=== PATIENT | female | born 1990 | race Caucasian/White ===

== ENCOUNTER 2016-10-16 18:49 | Outpatient (CLI) | payer OTHER ==
[~2016-10-16] VITALS: Ht 160 cm; Wt 60.4 kg
[2016-10-16 19:38] VITALS: BP 117/72
[2016-10-16 21:00] VITALS: BP 100/64
[2016-10-16 21:21] LABS: ADD MIUA? YES; BILIRUBIN NEGATIVE; BLOOD NEGATIVE; COLOR AMBER ((YELLOW)); GLUCOSE (STRIP) NEGATIVE; KETONES 80; LEUKOCYTES NEGATIVE; NITRITE NEGATIVE; PROTEIN (STRIP) 100; SPECIFIC GRAVITY 1.025 (1.000-1.030); UROBILINOGEN 0.2 MG/DL (0.2-1.0)
[2016-10-16 21:47] LABS: BACTERIA NONE SEEN /HPF; EPITHELIAL CELLS 1+ /HPF; MUCUS 4+ /LPF; RED BLOOD CELLS 0-5 /HPF (0-5); UCUL ADDED? NO; WHITE BLOOD CELLS 0-5 /HPF (0-5)
[2016-10-16 21:48] LABS: COLOR AMBER ((YELLOW)); LEUKOCYTES NEGATIVE; NITRITE NEGATIVE; PROTEIN (STRIP) 100; SPECIFIC GRAVITY 1.025 (1.000-1.030)
[2016-10-16 21:49] LABS: ADD MIUA? YES; BILIRUBIN NEGATIVE; BLOOD NEGATIVE; GLUCOSE (STRIP) NEGATIVE; KETONES 80; UROBILINOGEN 0.2 MG/DL (0.2-1.0)
[2016-10-16 21:52] LABS: BACTERIA NONE SEEN /HPF; EPITHELIAL CELLS 1+ /HPF; MUCUS 4+ /LPF; RED BLOOD CELLS 0-5 /HPF (0-5); WHITE BLOOD CELLS 0-5 /HPF (0-5)
[2016-10-16 21:55] LABS: EOSINOPHIL (%) 0 % (0-5); HEMATOCRIT 35.2 % (36.0-46.0); IMMATURE GRANULOCYTE (%) 0.7 % (0.0-0.7); IMMATURE GRANULOCYTE COUNT 0.1 K/uL; INSTRUMENT ABS NEUTROPHIL CT 8.6 K/uL; MCHC 30.1 G/DL (30.0-36.0); MEAN PLAT.VOLUME 10.2 uM^3 (9.5-12.4); MONOCYTE (%) 4.5 % (3-12); MONOCYTE COUNT 0.5 K/uL (0-0.8); NEUTROPHIL COUNT 8.6 K/uL (1.8-6.4); NRBC (%) 0.2 /100 WBC (0-0); PLATELET COUNT 394 K/uL (156-360); RBC DIS.WIDTH-CV 16.4 % (11.8-14.6); RED BLOOD COUNT 4.82 M/uL (3.80-5.20); WHITE BLOOD COUNT 11.1 K/uL (4.1-10.2)
[2016-10-16 22:04] LABS: CHLORIDE 106 mEq/L (99-109); POTASSIUM 3.3 mEq/L (3.7-5.4); SODIUM 142 mEq/L (136-147)
[2016-10-16 22:05] LABS: ADD MEDTOX COMMENT Y; AMPHETAMINE NEGATIVE (500 ng/mL); BARBITURATES NEGATIVE (200 ng/mL); BENZODIAZEPINES NEGATIVE (150 ng/mL); COCAINE PRESUMPTIVE POSITIVE (150 ng/mL); INTERNAL CONTROLS VALID? YES; METHADONE NEGATIVE (200 ng/mL); METHAMPHETAMINE NEGATIVE (500 ng/mL); OPIATES (MORPHINE) PRESUMPTIVE POSITIVE (100 ng/mL); OXYCODONE NEGATIVE (100 ng/mL); PHENCYCLIDINE NEGATIVE (25 ng/mL); PROPOXYPHENE NEGATIVE (300 ng/mL); THC CANNABINOIDS NEGATIVE (50 ng/mL); TRICYCLIC ANTIDEPRESSANTS NEGATIVE (300 ng/mL)
[2016-10-16 22:06] LABS: GLUCOSE 76 mg/dL (70-99)
[2016-10-16 22:07] LABS: ANION GAP 11 MEQ/L (2-14)
[2016-10-16 22:08] LABS: TOTAL BILIRUBIN 0.7 mg/dL (0.0-1.0)
[2016-10-16 22:09] LABS: ALKALINE PHOSPHATASE 112 IU/L (3-129)
[2016-10-16 22:10] LABS: GFR ESTIMATE (CALCULATED) > 59 mL/min/
[2016-10-16 22:11] LABS: UREA NITROGEN (BUN) 8 mg/dL (9-23)
[2016-10-16] MEDS ORDERED: SUBOXONE 8 MG-1 EAC2 SL (22:42)
[2016-10-16 23:54] VITALS: BP 123/66
[2016-10-17 00:25] LABS: METH RESISTANT S AUREUS PCR POSITIVE (NEGATIVE)
[2016-10-17 00:35] LABS: PROBE CHECK PASS
[2016-10-17 02:45] VITALS: BP 127/60
[2016-10-17 03:46] VITALS: BP 124/76
[2016-10-17 06:33] VITALS: BP 97/54
[2016-10-17 07:49] LABS: EOSINOPHIL (%) 0.4 % (0-5); HEMATOCRIT 26.9 % (36.0-46.0); IMMATURE GRANULOCYTE (%) 0.9 % (0.0-0.7); IMMATURE GRANULOCYTE COUNT 0.1 K/uL; INSTRUMENT ABS NEUTROPHIL CT 6.7 K/uL; LYMPHOCYTE COUNT 3.5 K/uL (1.0-2.8); MCH 22.5 PG (29.0-34.0); MCHC 30.5 G/DL (30.0-36.0); MCV 73.7 FL (83-99); MEAN PLAT.VOLUME 10.5 uM^3 (9.5-12.4); MONOCYTE (%) 6.3 % (3-12); MONOCYTE COUNT 0.7 K/uL (0-0.8); NEUTROPHIL (%) 60.2 % (45-76); NEUTROPHIL COUNT 6.7 K/uL (1.8-6.4); NRBC (%) 0.2 /100 WBC (0-0); PLATELET COUNT 333 K/uL (156-360); RBC DIS.WIDTH-CV 16.5 % (11.8-14.6); RBC DIS.WIDTH-SD 44.3 % (39-53); RED BLOOD COUNT 3.65 M/uL (3.80-5.20)
[2016-10-17 08:01] LABS: IRON 30 MCG/DL (35-150)
[2016-10-17 08:04] LABS: ALKALINE PHOSPHATASE 95 IU/L (3-129); ANION GAP 11 MEQ/L (2-14); CHLORIDE 105 MEQ/L (99-109); GFR ESTIMATE (CALCULATED) > 59 mL/min/; GLUCOSE 69 mg/dL (70-99); POTASSIUM 3.4 MEQ/L (3.7-5.4); SAMPLE HEMOLYSIS CHECK 0; SAMPLE ICTERIC CHECK 0; SAMPLE LIPEMIA CHECK 0; SODIUM 138 MEQ/L (136-147); TOTAL BILIRUBIN 0.7 MG/DL (0.0-1.0); UREA NITROGEN (BUN) 7 mg/dL (9-23)
[2016-10-17 09:55] LABS: FERRITIN 7 NG/ML (10-291)
[2016-10-17 11:40] VITALS: BP 101/51
[2016-10-17 15:09] VITALS: BP 106/57
[2016-10-17] MEDS ORDERED: FERROUS SULFAT325 MG PO (16:48)
== END 2016-10-17 20:05 | disposition home or self-care (01) ==
LOC: EME 18:49 → EDSTATUS 19:32 → LDRP-OP 19:36 → 2WEST 19:37
PROVIDERS: Nurse Practitioner; Nurse Practitioner Family; Obstetrics & Gynecology
DX: O26.893 Other specified pregnancy related conditions, third trimester (principal); K52.9 Noninfective gastroenteritis and colitis, unspecified; O99.283 Endocrine, nutritional and metabolic diseases complicating pregnancy, third trimester; E86.0 Dehydration; E87.6 Hypokalemia; Z3A.30 30 weeks gestation of pregnancy; O99.323 Drug use complicating pregnancy, third trimester; F14.10 Cocaine abuse, uncomplicated; R79.89 Other specified abnormal findings of blood chemistry; O98.413 Viral hepatitis complicating pregnancy, third trimester; B19.20 Unspecified viral hepatitis C without hepatic coma
CPT/HCPCS: 59025; 76818; 80053; 81003; 82728; 83540; 84466; 84999; 85025; 85027; 86900; 86901; 87081; 87641; C9113; G0378; J0574; J2405; J2550; J2790; J3480; J7030; J7120

== ENCOUNTER 2016-10-27 11:03 | Outpatient (CLI) | payer OTHER ==
[~2016-10-27 11:03] MED LIST: FERROUS SULFAT325 MG PO; SUBOXONE 8 MG-1 EAC2 SL
[2016-10-27 11:20] VITALS: BP 115/74
[2016-10-27 12:06] LABS: ADD MEDTOX COMMENT Y; AMPHETAMINE NEGATIVE (500 ng/mL); BARBITURATES NEGATIVE (200 ng/mL); BENZODIAZEPINES PRESUMPTIVE POSITIVE (150 ng/mL); COCAINE NEGATIVE (150 ng/mL); INTERNAL CONTROLS VALID? YES; METHADONE NEGATIVE (200 ng/mL); METHAMPHETAMINE NEGATIVE (500 ng/mL); OPIATES (MORPHINE) NEGATIVE (100 ng/mL); OXYCODONE NEGATIVE (100 ng/mL); PHENCYCLIDINE NEGATIVE (25 ng/mL); PROPOXYPHENE NEGATIVE (300 ng/mL); THC CANNABINOIDS NEGATIVE (50 ng/mL); TRICYCLIC ANTIDEPRESSANTS NEGATIVE (300 ng/mL)
[2016-10-27] MEDS ORDERED: XANAX0.5 MG PO (12:17)
[2016-10-27 12:55] LABS: EOSINOPHIL (%) 1.5 % (0-5); EOSINOPHIL COUNT 0.1 K/uL (0-0.3); HEMATOCRIT 29.8 % (36.0-46.0); IMMATURE GRANULOCYTE (%) 2.7 % (0.0-0.7); IMMATURE GRANULOCYTE COUNT 0.2 K/uL; INSTRUMENT ABS NEUTROPHIL CT 5.4 K/uL; LYMPHOCYTE COUNT 2.5 K/uL (1.0-2.8); MCH 22.4 PG (29.0-34.0); MCHC 29.9 G/DL (30.0-36.0); MCV 75.1 FL (83-99); MONOCYTE (%) 7.3 % (3-12); MONOCYTE COUNT 0.7 K/uL (0-0.8); NEUTROPHIL (%) 60.6 % (45-76); NEUTROPHIL COUNT 5.4 K/uL (1.8-6.4); PLATELET COUNT 298 K/uL (156-360); RBC DIS.WIDTH-CV 18.4 % (11.8-14.6); RBC DIS.WIDTH-SD 45.5 % (39-53); RED BLOOD COUNT 3.97 M/uL (3.80-5.20); WHITE BLOOD COUNT 8.9 K/uL (4.1-10.2)
[2016-10-27 13:04] LABS: BENZODIAZEPINES, URINE SCREEN POSITIVE (200 ng/mL)
[2016-10-27 13:18] LABS: ANION GAP 10 MEQ/L (2-14); CHLORIDE 107 MEQ/L (99-109); POTASSIUM 3.9 MEQ/L (3.7-5.4); SAMPLE HEMOLYSIS CHECK 0; SAMPLE ICTERIC CHECK 0; SAMPLE LIPEMIA CHECK 0; SODIUM 141 MEQ/L (136-147); TOTAL BILIRUBIN 0.4 MG/DL (0.0-1.0)
[2016-10-27 13:22] LABS: ALKALINE PHOSPHATASE 112 IU/L (3-129); GFR ESTIMATE (CALCULATED) > 59 mL/min/; GLUCOSE 91 mg/dL (70-99); SERUM ETHYL ALCOHOL < 10 mg/dL; UREA NITROGEN (BUN) 7 mg/dL (9-23)
[2016-10-27 14:27] VITALS: BP 109/74
[2016-10-27 19:43] LABS: METH RESISTANT S AUREUS PCR POSITIVE (NEGATIVE)
[2016-10-27 19:49] VITALS: BP 108/71
[2016-10-27 19:49] LABS: PROBE CHECK PASS
[2016-10-27 22:42] VITALS: BP 109/53
[2016-10-28 07:05] VITALS: BP 110/67
[2016-10-28 07:32] LABS: HEMATOCRIT 28.5 % (36.0-46.0); MCH 22.4 PG (29.0-34.0); MCHC 29.8 G/DL (30.0-36.0); MCV 75.2 FL (83-99); MEAN PLAT.VOLUME 11.2 uM^3 (9.5-12.4); NRBC (%) 0.3 /100 WBC (0-0); PLATELET COUNT 277 K/uL (156-360); RBC DIS.WIDTH-SD 45.4 % (39-53); RED BLOOD COUNT 3.79 M/uL (3.80-5.20); WHITE BLOOD COUNT 9.2 K/uL (4.1-10.2)
[2016-10-28 08:17] LABS: ALKALINE PHOSPHATASE 105 IU/L (3-129); ANION GAP 8 MEQ/L (2-14); CHLORIDE 108 MEQ/L (99-109); GFR ESTIMATE (CALCULATED) > 59 mL/min/; POTASSIUM 3.7 MEQ/L (3.7-5.4); SAMPLE HEMOLYSIS CHECK 0; SAMPLE ICTERIC CHECK 0; SAMPLE LIPEMIA CHECK 0; SODIUM 138 MEQ/L (136-147); UREA NITROGEN (BUN) 3 mg/dL (9-23)
[2016-10-28 08:18] LABS: GLUCOSE 204 mg/dL (70-99); TOTAL BILIRUBIN 0.3 MG/DL (0.0-1.0)
[2016-10-28 11:18] VITALS: BP 108/65
[2016-10-28] MEDS ORDERED: LACTULOSE10 GM/151 PO ×2 (11:25→11:29)
[2016-10-28 12:42] LABS: HBSG INDEX 0.26
[2016-10-28 12:43] LABS: ANTI-HEPATITIS A VIRUS (IGM) Nonreactive
[2016-10-28 12:45] LABS: ANTI-HEPATITIS B CORE (IGM) Nonreactive; HIV INDEX 0.08; HIV-1/2 AB/AG COMBO Nonreactive
[2016-10-28 12:59] LABS: HPCA INDEX 12.53
[2016-10-28 14:29] VITALS: BP 100/57
[2016-10-28 15:36] VITALS: BP 116/67
== END 2016-10-28 15:45 | disposition home or self-care (01) ==
LOC: LDRP-OP 11:03 → 2WEST 11:04 → LDRP-OP 01-18 20:21
PROVIDERS: Advanced Practice Midwife; Internal Medicine; Obstetrics & Gynecology
DX: O99.343 Other mental disorders complicating pregnancy, third trimester (principal); Z3A.31 31 weeks gestation of pregnancy; Z86.19 Personal history of other infectious and parasitic diseases; O26.893 Other specified pregnancy related conditions, third trimester; O99.323 Drug use complicating pregnancy, third trimester; Z81.8 Family history of other mental and behavioral disorders; F11.10 Opioid abuse, uncomplicated; Z82.49 Family history of ischemic heart disease and other diseases of the circulatory system
CPT/HCPCS: 59025; 76705; 80053; 80074; 82140; 83030; 84999; 85025; 85027; 86703; 86900; 86901; 87081; 87641; G0378; G0480; J0574; J2790

== ENCOUNTER 2016-12-08 02:10 | Inpatient (IN) | payer OTHER ==
[~2016-12-08] VITALS: Ht 160 cm; Wt 67.3 kg
[2016-12-08] VITALS (27 sets, daily range): BP systolic 102–162; BP diastolic 58–93
[~2016-12-08 02:10] MED LIST changes: +LACTULOSE10 GM/151 PO; +XANAX0.5 MG PO
[2016-12-08] MEDS ORDERED: PROMETHAZINE HC25 M1 PO (03:05)
[2016-12-08 03:08] LABS: AMPHETAMINE NEGATIVE (500 ng/mL); BARBITURATES NEGATIVE (200 ng/mL); BENZODIAZEPINES NEGATIVE (150 ng/mL); COCAINE NEGATIVE (150 ng/mL); METHADONE NEGATIVE (200 ng/mL); METHAMPHETAMINE NEGATIVE (500 ng/mL); OPIATES (MORPHINE) NEGATIVE (100 ng/mL); PHENCYCLIDINE NEGATIVE (25 ng/mL); THC CANNABINOIDS NEGATIVE (50 ng/mL); TRICYCLIC ANTIDEPRESSANTS PRESUMPTIVE POSITIVE (300 ng/mL)
[2016-12-08 03:09] LABS: INTERNAL CONTROLS VALID? YES; OXYCODONE NEGATIVE (100 ng/mL); PROPOXYPHENE NEGATIVE (300 ng/mL)
[2016-12-08 03:24] LABS: EOSINOPHIL (%) 0.4 % (0-5); HEMATOCRIT 31.3 % (36.0-46.0); IMMATURE GRANULOCYTE (%) 0.6 % (0.0-0.7); IMMATURE GRANULOCYTE COUNT 0.1 K/uL; INSTRUMENT ABS NEUTROPHIL CT 7.2 K/uL; LYMPHOCYTE COUNT 2.2 K/uL (1.0-2.8); MCH 22.6 PG (29.0-34.0); MEAN PLAT.VOLUME 11.5 uM^3 (9.5-12.4); MONOCYTE COUNT 0.5 K/uL (0-0.8); NEUTROPHIL (%) 71.5 % (45-76); NEUTROPHIL COUNT 7.2 K/uL (1.8-6.4); PLATELET COUNT 213 K/uL (156-360); RBC DIS.WIDTH-CV 22.4 % (11.8-14.6); RED BLOOD COUNT 4.29 M/uL (3.80-5.20)
[2016-12-08 03:25] LABS: CHLORIDE 105 mEq/L (99-109); POTASSIUM 3.8 mEq/L (3.7-5.4); SODIUM 140 mEq/L (136-147)
[2016-12-08 03:27] LABS: GLUCOSE 78 mg/dL (70-99)
[2016-12-08 03:28] LABS: ANION GAP 14 MEQ/L (2-14)
[2016-12-08 03:29] LABS: TOTAL BILIRUBIN 0.3 mg/dL (0.0-1.0)
[2016-12-08 03:30] LABS: ALKALINE PHOSPHATASE 135 IU/L (3-129)
[2016-12-08 03:31] LABS: GFR ESTIMATE (CALCULATED) > 59 mL/min/
[2016-12-08 03:32] LABS: UREA NITROGEN (BUN) 13 mg/dL (9-23)
[2016-12-08 06:06] LABS: METH RESISTANT S AUREUS PCR NEGATIVE (NEGATIVE)
[2016-12-08 06:07] LABS: PROBE CHECK PASS; SPECIMEN PROCESSING CONTROL PASS
[2016-12-08] MEDS ORDERED: MOTRIN800 MG PO (08:25)
[2016-12-09 07:23] VITALS: BP 128/75
== END 2016-12-09 11:50 | disposition home or self-care (01) | DRG 774 ==
LOC: LDRP-OP 02:10 → 2WEST 02:11 → LDRP-OP 01-18 16:40
PROVIDERS: Midwife
PROC: 3E0S3CZ (ICD-10-PCS; principal; 2016-12-08)
PROC: 00HU33Z Insertion of Infusion Device into Spinal Canal, Percutaneous Approach (ICD-10-PCS; principal; 2016-12-08)
PROC: 10E0XZZ Delivery of Products of Conception, External Approach (ICD-10-PCS; principal; 2016-12-08)
DX: O99.324 Drug use complicating childbirth (principal); O98.42 Viral hepatitis complicating childbirth; F11.20 Opioid dependence, uncomplicated; F14.90 Cocaine use, unspecified, uncomplicated; D50.9 Iron deficiency anemia, unspecified; O36.0930 Maternal care for other rhesus isoimmunization, third trimester, not applicable or unspecified; B19.20 Unspecified viral hepatitis C without hepatic coma; Z3A.37 37 weeks gestation of pregnancy; Z37.0 Single live birth; O77.0 Labor and delivery complicated by meconium in amniotic fluid; O99.02 Anemia complicating childbirth; O99.344 Other mental disorders complicating childbirth; F32.9 Major depressive disorder, single episode, unspecified; F41.9 Anxiety disorder, unspecified; O09.33 Supervision of pregnancy with insufficient antenatal care, third trimester; R87.612 Low grade squamous intraepithelial lesion on cytologic smear of cervix (LGSIL); O99.89 Other specified diseases and conditions complicating pregnancy, childbirth and the puerperium; N87.0 Mild cervical dysplasia
CPT/HCPCS: 80053; 83030; 85025; 86870; 86900; 86901; 86905; 87641; C1755; J0571; J2790; J3010; J7120

== ENCOUNTER 2018-01-06 16:29 | Emergency (ER) | payer OTHER ==
[~2018-01-06] VITALS: Ht 160 cm; Wt 63.9 kg
[~2018-01-06 16:29] MED LIST changes: +MOTRIN800 MG PO; +PROMETHAZINE HC25 M1 PO
[2018-01-06 17:50] VITALS: BP 109/62
== END 2018-01-06 17:50 | disposition home or self-care (01) ==
LOC: EME 16:29
DX: F32.9 Major depressive disorder, single episode, unspecified (principal); F41.9 Anxiety disorder, unspecified
CPT/HCPCS: 99281; 99283